=== PATIENT | female | born 1980 | race African-American/Black ===

== ENCOUNTER 2019-03-11 02:22 | Emergency (ER) | payer BC ==
[~2019-03-11] VITALS: Ht 172.7 cm; Wt 97.7 kg
[~2019-03-11 02:22] MED LIST: OFLO35OS OP
[2019-03-11 02:30] VITALS: BP 112/85
[2019-03-11 03:31] LABS: APPEARANCE,URINE CLOUDY (CLEAR); BILIRUBIN,URINE NEGATIVE (NEGATIVE); GLUCOSE, URINE (UA) NEGATIVE (NEGATIVE); KETONES,URINE NEGATIVE (NEGATIVE); LEUKOCYTE ESTERASE ,URINE NEGATIVE (NEGATIVE); NITRATE,URINE NEGATIVE (NEGATIVE); OCCULT BLOOD,URINE NEGATIVE (NEGATIVE); PROTEIN,URINE NEGATIVE (NEGATIVE); UROBILINOGEN,URINE 0.2 mg/dL (<=1.0)
== END 2019-03-11 03:30 | disposition left against medical advice (07) ==
LOC: EMS 02:22
DX: M79.606 Pain in leg, unspecified (principal); Z53.21 Procedure and treatment not carried out due to patient leaving prior to being seen by health care provider